=== PATIENT | female | born 1945 | race Caucasian/White ===

== ENCOUNTER → 2016-12-29 | Outpatient (CLI) | payer OTHER ==
[2016-12-29 12:24] LABS: COMPLEMENT C4 28.1 MG/DL (10-40)
[2017-01-04 08:08] LABS: C1 ESTER INHIB. NON FUNCTIONAL 28 mg/dL (21-39); F002-IGE MILK 0.14 kU/L (Class 0/I); F003-IGE CODFISH <0.10 kU/L (Class 0); F004-IGE WHEAT <0.10 kU/L (Class 0); F008-IGE CORN <0.10 kU/L (Class 0); F013-IGE PEANUT <0.10 kU/L (Class 0); F014-IGE SOYBEAN <0.10 kU/L (Class 0); F024-IGE SHRIMP <0.10 kU/L (Class 0); F026-IGE PORK <0.10 kU/L (Class 0); F027-IGE BEEF <0.10 kU/L (Class 0); F083-IGE CHICKEN <0.10 kU/L (Class 0); F245-IGE EGG, WHOLE 0.13 kU/L (Class 0/I); F256-IGE WALNUT <0.10 kU/L (Class 0); F303-IGE HALIBUT <0.10 kU/L (Class 0)
== END ==
LOC: M LAB 10:51
PROVIDERS: ATTEND Allergy & Immunology
DX: R53.81 Other malaise (principal); T78.3XXA Angioneurotic edema, initial encounter; Y92.9 Unspecified place or not applicable; Y93.9 Activity, unspecified